=== PATIENT | female | born 1960 | race Caucasian/White ===

== ENCOUNTER 2017-02-15 11:32 | Emergency (ER) | payer BC ==
[~2017-02-15] VITALS: Ht 167.6 cm; Wt 70.7 kg
[2017-02-15 11:38] VITALS: BP 123/56; PULSE 65; TEMP 36.6; O2SAT 97; Ht 167.6 cm; Wt 70.7 kg
[2017-02-15] MEDS ORDERED: PROPARACAINE HCL 0.5% OP SOLN 15 ML BTL OP STA (11:57)
[2017-02-15] MEDS ORDERED: ELMCR (12:25)
[2017-02-15] MEDS ORDERED: IVER5TAB (12:25)
[2017-02-15] MEDS ORDERED: CLIN300C10 PO (12:33)
--- NOTE | 2017-02-15 22:14 | EMERGENCY ROOM VISIT NOTE ---
ED Visit Note First contact with patient: 11:50 Chief Complaint: I'm having right eye redness and pain. History of Present Illness: Ms. Ravi is a 56-year-old white female who ambulates into the ED complaining of right eyelid pain and swelling. Historically patient denies any previous significant diseases, injuries or trauma to her eye. Later during my evaluation she does report she did accidentally poke her left eye with a makeup brush earlier this week but did not develop any symptoms. 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 She was seen at a local urgent care center who diagnosed her with conjunctivitis and she was started on Ciloxan ophthalmic drops. She reports to the night multiple times she awoke from sleep and found that her eyelids were matted shut and this morning when she woke up there was worsening redness/swelling. She reports she did Internet search and fell her most likely cause of her symptoms were orbital cellulitis. She was re-seen at the local urgent care center who referred her to the ED for further evaluation and care. Currently patient relates her current discomfort of her eyelids as a pressure sensation. She rates her discomfort 2/10. Pain is located over the marginal borders of the upper and lower eyelids of the right eye. Her pain worsens with palpation. She has not identified any alleviating factors related to the pain. She has not actually taken any medications for pain but has been using her Ciloxan. Associated with her pain she reports that when she pushed in the medial canthus area earlier she had extrusion of a purulent drainage. She denies fevers, chills, sweats, other skin eruptions, other skin color changes, headaches, visual changes, light sensitivity, tearing, extended contact use, upper respiratory tract symptoms, decreased appetite. Review of Systems: As noted above in history of present illness. 5 body systems were reviewed and found to be negative as noted above. Past Medical History: CVA, atrial septal defect, pneumonia. Current Medications: Permethrin, Ivermectin, Cipro Floxin eyedrops. Allergies to Medications: Sulfa. Social History: Patient is currently employed; she feels safe in her home environment; she denies tobacco use and admits to alcohol use. Physical Examination: Vital Signs: Date Time Temp Pulse Resp B/P (MAP) Pulse Ox O2 Delivery O2 Flow Rate FiO2 02/15/17 11:38 36.6 65 20 123/56 97 Room Air GENERAL: 56-year-old female in mild distress due to symptoms, nontoxic-appearing , afebrile and hemodynamically stable. Patient is very anxious and fearful. NEUROLOGICAL: Awake, alert and oriented to person, place and time. Answering questions appropriately and following commands. Good hand eye coordination. SKIN: Warm, dry and pink. HEENT: Atraumatic and normocephalic. Right eyelids shows mild erythema and edema over the margins of the eyelid. There is no extension of this edema or erythema into the upper or middle portions of the eyelid. There is no local lymphangitis. The eyelids are not swollen shut. PERRLA. EOMI without nystagmus. No foreign bodies noted under the eyelids are embedded in the cornea. The anterior chamber is clear. Visual Acuity: 20/20 bilaterally with corrective lenses. On slit lamp examination patient has mild uptake of fluorescein around the borders of cornea including the 11th 1:00 physician, 3 o' clock position and 6 o'clock position. I do not actually see any deficits in this area. No other corneal lesions were noted. On palpation of the eye I was not able to express any purulent drainage from the medial canthus. Sclera of the right eye was mildly injected and conjunctiva is mildly erythematous. No erythema or tenderness over the frontal or maxillary sinuses. No drainage from naris. Airway was patent. Speech normal. ED Course: Patient is assessed as noted above. Patient's medication list was reviewed. Alcaine was used to anesthetize the right eye for examination. I did have a lengthy conversation with the patient about signs and symptoms of orbital cellulitis and why I did not feel she had orbital cellulitis. I did offer testing for orbital cellulitis including laboratory tests and CT and she refused. She requested and was insistent on given oral antibiotic therapy for orbital cellulitis. I did finally agree to put her on an antibiotic but did give her appropriate precautions for diarrheal illness. Patient was educated about today's findings and instructed on her treatment plan ; she verbalizes understanding and agreement with this plan. Clinical Impression: Acute conjunctivitis. Decision-Making: Initially my differential diagnosis I considered corneal abrasions, punctate keratitis, conjunctivitis from multiple causes, episcleritis , scleritis and other causes. Disposition: Patient discharged home in stable condition; prior to departure she was reassessed and subjectively reported she was feeling the same. Plan: Patient was encouraged to use appropriate ibuprofen or acetaminophen every 6 hours as needed for pain. Patient was encouraged to continue her Ciloxan ophthalmic drops as prescribed. Patient was prescribed clindamycin 300 mg 4 times a day for 7 days. Patient was encouraged use cool compresses on her eyes for swelling and redness. Patient was encouraged to avoid contact and makeup use for 10 days and then to throw away all her makeup and her old contacts and start new. Patient was encouraged to follow-up with her primary care provider or with ophthalmology for recheck in 2-3 days if no better. Patient was encouraged return ED for worsening swelling/redness, visual changes , fevers, headaches, vomiting or any new/concerning symptoms.
== END 2017-02-15 12:45 | disposition home or self-care (01) ==
LOC: C.EDB 11:36 → C.EDD 12:45
DX: H10.31 Unspecified acute conjunctivitis, right eye (principal); Z79.899 Other long term (current) drug therapy; Z86.73 Personal history of transient ischemic attack (TIA), and cerebral infarction without residual deficits; Z87.01 Personal history of pneumonia (recurrent)

== ENCOUNTER → 2017-03-30 | Outpatient (CLI) | payer BC ==
[~2017-03-30] MED LIST: CLIN300C10 PO; ELMCR; IVER5TAB
--- NOTE | 2017-03-30 09:05 | DIAGNOSTIC IMAGING REPORT ---
SINUSES-MAXILLOFACIAL W/O HISTORY: 56 years-old Female J32.9,J01.00 acute maxillary sinusitis with right high cellulitis. Sinus infection for 6 weeks. COMPARISON: None available TECHNIQUE: Multiple axial CT images of the sinuses and maxillofacial bones were obtained without contrast. A dose lowering technique was used consistent with the principals of LINDA. FINDINGS: Mastoid air cells and middle ear cavities are clear. There is only minimal mucosal thickening of the inferior maxillary sinuses bilaterally. Minimal anterior sphenoid sinus mucosal thickening. There is minimal mucosal thickening of the ethmoid air cells. The frontal sinuses are generally clear. The nasal septum is midline. There is minimal rightward spurring of the nasal septum. No sydnie bullosa or Domonique cell. The bilateral maxillary ostemia units, sphenoethmoidal and frontoethmoidal recesses are patent. No facial bone fracture or dislocation. Mild degenerative changes of the bilateral temporal mandibular joints. Mild to moderate degenerative changes at C1-C2. Moderate facet arthropathy of the imaged upper cervical spine. The imaged intracranial structures are unremarkable. Calcified 1.2 x 0.7 x 2.2 cm structure of the left parapharyngeal tissues is noted medial to the left internal carotid artery which is nonspecific and may reflect a calcified lymph node however is indeterminate. There is atherosclerotic plaquing of the bilateral carotid vasculature. IMPRESSION: 1. Mild paranasal sinus disease as above without evidence of ostiomeatal occlusive disease. 2. Nonspecific 1.2 x 0.7 x 2.2 cm calcified structure of the left parapharyngeal tissues adjacent to the left carotid vasculature may reflect calcified lymph node however is indeterminate. 3. Moderate facet arthropathy of the imaged upper cervical spine. The above report was generated using voice recognition software. It may contain grammatical, syntax or spelling errors. Electronically signed by: Shin Reis M.D. 03/30/2017 9:04 AM Dictated Date/Time: 03/30/2017 8:51 AM
== END | disposition home or self-care (01) ==
LOC: C.CTS 08:30
PROVIDERS: ATTEND Nurse Practitioner
DX: J01.00 Acute maxillary sinusitis, unspecified (principal); J32.9 Chronic sinusitis, unspecified

== ENCOUNTER → 2017-12-28 | Outpatient (CLI) | payer OTHER ==
--- NOTE | 2017-12-29 07:30 | MAMMOGRAPHY REPORT ---
THIS REPORT HAS BEEN AMENDED. BILATERAL DIGITAL SCREENING MAMMOGRAM TOMOSYNTHESIS WITH CAD: 12/28/2017 CLINICAL HISTORY: Routine screening. Patient has no complaints. TECHNIQUE: The study was acquired using full field digital technology and interpreted from soft copy. Breast tomosynthesis in addition to standard 2D mammography was performed. Current study was also ev aluated with a Computer Aided Detection (CAD) system. COMPARISON: No prior exams were available for comparison. BREAST COMPOSITION: The tissue of both breasts is heterogeneously dense, which may obscure small mass es. FINDINGS: There benign rim calcifications in each breast. No suspicious mass, architectural distorti on or cluster of microcalcifications is seen. IMPRESSION: ACR BI-RADS CATEGORY 1: NEGATIVE There is no mammographic evidence of malignancy. Prior outside mammograms are currently being reques kennedy and if obtained they will be reviewed, compared to the current exam to assess for any more subtle changes, and an addendum will be made to this report. Otherwise, a 1 year screening mammogram is re commended. The patient will receive written notification of the results. Some breast cancers are not detected with mammography. A negative mammographic report should not corbin y biopsy if a clinically suggestive mass is present. Ludmila Stewart M.D. ay/:12/28/2017 15:26:32 [employer] Operator: RT Edil(Garrett)(Miranda)([place]), [facility] letter sent: Normal 06/09 BI-RADS Code: ACR BI-RADS Category 1: Negative AMENDMENT: 01/04/2018 Ludmila Stewart M.D. Prior outside mammograms from [facility] dated 07/14/2012, 03/03/2014, 10/28/2016 became available for pedro sanchez. There is interval coarsening of the benign rim calcification in the right breast comparing to grace or exams. Stable rim calcification in the left breast. No new suspicious masses, clustered calcific ations, areas of architectural distortion or asymmetries are seen bilaterally. Recommend routine scr eening mammography in 1 year. Amended BI-RADS: ACR BI-RADS Category 2: Benign letter sent: Normal 2
== END | disposition home or self-care (01) ==
LOC: C.MAMM 09:00
PROVIDERS: ATTEND Nurse Practitioner
DX: Z12.31 Encounter for screening mammogram for malignant neoplasm of breast (principal)

== ENCOUNTER → 2017-12-28 | Outpatient (CLI) | payer OTHER ==
--- NOTE | 2017-12-28 10:19 | DIAGNOSTIC IMAGING REPORT ---
THYROID ULTRASOUND CLINICAL HISTORY: History of thyroid nodules. COMPARISON STUDY: None available at time of interpretation. TECHNIQUE: Sonography of the thyroid gland was performed. FINDINGS: The right thyroid lobe measures 4.6 x 1.3 x 1.4 cm and the left lobe measures 4.4 x 1.2 x 2 cm. Multiple thyroid nodules are noted, the largest of which is a 2.4 x 1 x 1.8 cm mid pole nodule within the left lobe. This is slightly hypoechoic. None of these nodules demonstrate suspicious imaging characteristics. Coarse calcifications are noted within several nodules. IMPRESSION: Findings consistent with a multinodular thyroid gland, as described above. Electronically signed by: Rachid Tai M.D. 12/28/2017 10:18 AM Dictated Date/Time: 12/28/2017 10:15 AM
== END | disposition home or self-care (01) ==
LOC: C.ULTR 09:24
PROVIDERS: ATTEND Nurse Practitioner
DX: E04.2 Nontoxic multinodular goiter (principal); Z88.2 Allergy status to sulfonamides